=== PATIENT | male | born 1955 | race Caucasian/White ===

== ENCOUNTER 2021-09-16 08:07 | Emergency (ER) | payer OTHER ==
[~2021-09-16] VITALS: Ht 172.7 cm; Wt 82.1 kg
[2021-09-16 08:41] VITALS: BP 149/99
--- NOTE | 2021-09-16 08:44 | NUR ---
PT AMBULATED TO ER BED 8 WITH A STEADY GAIT.
--- NOTE | 2021-09-16 08:52 | NUR ---
66 Y/O MALE C/O RECTAL PAIN S/P HEMORRHOID REMOVAL 09/11/21. PT STATES SCANT KRISTIN RED BLOOD. DENIES FEVER/CHILLS. DENIES N/V. PMH: GALUCOMA, PHIL'S DISEASE, HTN, KIDNEY CA, KIDNEY REMOVAL, MS ALLERGIES: PCN
[2021-09-16] MEDS ORDERED: LACT-103 PO (09:19)
[2021-09-16 10:35] VITALS: BP 149/99
--- NOTE | 2021-09-16 10:35 | NUR ---
Patient discharged with information for constipation and proctalgia fugax v/s stable. Written and verbal after care instructions given and explained. Patient alert, oriented and verbalized understanding of instructions. Ambulatory with steady gait. All questions addressed prior to discharge. ID band removed. Patient advised to follow up with PMD. Rx of lactulose given. Patient educated on indication of medication including possible reaction and side effects. Opportunity to ask questions provided and answered.
--- NOTE | 2021-09-16 10:40 | NUR ---
The patient's care was reviewed and supervised by Juliana Dewey RN.
== END 2021-09-16 10:35 | disposition home or self-care (01) ==
LOC: MED 08:07
DX: G89.18 Other acute postprocedural pain (principal); K62.5 Hemorrhage of anus and rectum; Z79.899 Other long term (current) drug therapy; Z88.0 Allergy status to penicillin
CPT/HCPCS: 99283

== ENCOUNTER 2021-10-02 19:56 | Emergency (ER) | payer OTHER ==
[~2021-10-02] VITALS: Ht 172.7 cm; Wt 80.3 kg
[2021-10-02 19:56] VITALS: BP 123/89
[~2021-10-02 19:56] MED LIST: LACT-103 PO
--- NOTE | 2021-10-02 20:14 | NUR ---
PT HERMINIA VIA GURNEY TO BED 12.
--- NOTE | 2021-10-02 20:32 | NUR ---
66 YO/M BIBA FROM HOME W PRIMARY C/O RECTAL PAIN 10/10 WORSENING WHEN LAYING, STANDING, SITTING S/P HEMMORHOID SURGERY IN 09/03/21, + N/V WHEN ATTEMPTING TO HAVE A BOWEL MOVEMENT, +CONSTIPATION, CHILLS, HEADACHE, WEAKNESS. PT ALSO C/O SOB AND DIZZYNESS X1 WEEKS BUT WORSENING W COUGHING UP BLOOD PLHEGM LIKE. PT 86% ON RA, PLACED ON 4L NC W O2 SAT 93%. PT DENIES ANY CHEST PAIN, FEVERS, BLOOD IN STOOL. PT ALSO C/O R TESTICULAR SWELLING XAPPROX 1 WEEK W BURNING URINATION AND FREQUENCY, DENIES BLOOD IN URINE. DENIES INJURY TO GROIN AREA. R TESTICLE NOTED SWOLLEN. PT AOX4, GCS 15. ERMD MADE AWARE OF PT STATUS. RT CALLED FOR PT EVAL. PT LAYING IN BED W HOB ELEVATED, BED LOCKED IN LOWEST POSITION W X2 RAILS UP FOR SAFETY. PT CONNECTED TO MONITOR, BREATHING EVEN AND UNLABORED. WILL CONTINUE TO MONITOR. PMH:HTN, ABDOMINAL CANCER (W CURRENTLY RECEIVING IMMUNOTHERAPY) HIATAL HERNIA, GLAUCOMA, HIGH CHOL, MS, ADDISONS DZ, HEMORRHOID SURGERY 09/03/21 ALLERGIES: PENICILLINS
[2021-10-02] MEDS ORDERED: ALBUTEROL 0.083% 2.5 MG/3 ML NEBU INH ONE (21:01)
--- NOTE | 2021-10-02 21:22 | NUR ---
FLAKITA SWAB COLLECTED FROM PT NARES AND HANDED TO DIAMOND FROM LAB.
--- NOTE | 2021-10-02 21:40 | NUR ---
PT C/O OF ONGOING NAUSEA. ERMD MADE AWARE.
[2021-10-02 21:53] LABS: BASOPHILS % (AUTO) 0.7 % (0.0-2.0); EOSINOPHILS # (AUTO) 0.2 K/uL (0-0.4); EOSINOPHILS % (AUTO) 3.3 % (0.0-4.0); HEMATOCRIT 41.5 % (36-52); HEMOGLOBIN 13.9 g/dL (12.0-18.0); LYMPHOCYTES # (AUTO) 0.8 K/uL (2.0-11.5); LYMPHOCYTES % (AUTO) 15.4 % (20.5-51.1); MEAN CORPUSCULAR HEMOGLOBIN 31 pg (27-31); MEAN CORPUSCULAR HGB CONC 33 g/dL (33-37); MEAN CORPUSCULAR VOLUME 93.7 fL (80-94); MONOCYTES # (AUTO) 0.5 K/uL (0.8-1.0); MONOCYTES % (AUTO) 9.3 % (1.7-9.3); NEUTROPHILS # (AUTO) 3.7 K/uL (1.8-7.7); NEUTROPHILS % (AUTO) 71.3 % (42.2-75.2); PLATELET COUNT (AUTO) 396 K/uL (140-450); RED BLOOD CELL COUNT(AUTO) 4.43 MIL/uL (4.20-6.10); RED CELL DISTRIBUTION WIDTH 15.5 % (11.6-13.7); WHITE BLOOD COUNT (AUTO) 5.2 K/uL (4.8-10.8)
[2021-10-02] MEDS ORDERED: ONDANSETRON 4 MG/2 ML VIAL IVP ONE (21:55)
[2021-10-02] MEDS ORDERED: LEVOFLOXACIN 500 MG/D5W PREMIX 100 ML IV ONE (21:55)
[2021-10-02 22:07] LABS: ALBUMIN 2.6 g/dL (3.4-5.0); ANION GAP 10.1 (8-16); CARBON DIOXIDE 30.8 mmol/L (21-32); CREATININE 1.4 mg/dL (0.6-1.3); POTASSIUM 4.9 mmol/L (3.5-5.1); TOTAL BILIRUBIN 0.2 mg/dL (0.0-1.0)
--- NOTE | 2021-10-02 23:01 | NUR ---
PT C/O ONGOING HEADACHE AND RECTAL PAIN, REQUESTING PAIN MEDICATIONS. BETY ARNDT MADE AWARE. AWAITING ORDERS.
[2021-10-02] MEDS ORDERED: ACETAMINOPHEN EXTRA STRENGTH 500 MG TAB PO ONE (23:05)
[2021-10-02] MEDS ORDERED: HYDROcodone/APAP 5/325 MG 1 TAB TAB PO ONE (23:20)
--- NOTE | 2021-10-02 23:25 | NUR ---
PT IN BED LOCKED IN LOWEST POSITION W X2 SIDERAILS UP FOR PT SAFETY. VSS ON MONITOR ON 3 L NC 97 O2 SAT. RECENTLY MEDICATED FOR PAIN. BREATHING EVEN AND UNLABORED. NAD NOTED, WILL CONTINUE TO MONITOR.
--- NOTE | 2021-10-03 00:06 | NUR ---
PT C/O NAUSEA AND DIZZINESS. ERMD MADE AWARE.
[2021-10-03] MEDS ORDERED: ONDANSETRON 4 MG/2 ML VIAL IVP ONE (00:10)
[2021-10-03] MEDS ORDERED: IMO2 PO (00:25)
[2021-10-03] MEDS ORDERED: TIM.5OS OP (00:25)
[2021-10-03] MEDS ORDERED: DULO60EC1 PO (00:25)
[2021-10-03] MEDS ORDERED: TRAZ-343 PO (00:25)
[2021-10-03] MEDS ORDERED: SIMV20TA1 PO (00:25)
[2021-10-03] MEDS ORDERED: XALOS OP (00:25)
[2021-10-03] MEDS ORDERED: HYDR-3926 PO (00:25)
[2021-10-03] MEDS ORDERED: ASPI-1856 PO (00:25)
[2021-10-03] MEDS ORDERED: LISI-486 PO (00:25)
[2021-10-03] MEDS ORDERED: ONDA8TAB13 PO (00:25)
[2021-10-03] MEDS ORDERED: CABO40TA PO (00:25)
[2021-10-03] MEDS ORDERED: SYN.05 PO (00:25)
[2021-10-03] MEDS ORDERED: PANT40EC PO (00:25)
[2021-10-03] MEDS ORDERED: ALPOS OP (00:25)
[2021-10-03] MEDS ORDERED: [UNRECOGNIZED DRUG - CODE] IV (00:25)
[2021-10-03] MEDS ORDERED: BENZ200C4 PO (00:25)
--- NOTE | 2021-10-03 00:26 | NUR ---
SPOKE W PT JUSTO TO PROVIDE UPDATE ON PT STATUS. PER PT OK TO PROVIDE W UPDATES AND HEALTH STATUS INFO.
--- NOTE | 2021-10-03 01:01 | NUR ---
PT PROVIDED W APPLE JUICE. PER ERMD PT OK TO EAT AND DRINK. PT REPORTS MILD NAUSEA AND PAIN IMPROVEMENT PAIN AND NAUSEA AGGRAVATED W MOVEMENT BUT OTHERWISE FEELING OK, SLIGHT SOB BUT IMPROVED FROM INITIAL. VSS.
--- NOTE | 2021-10-03 02:11 | NUR ---
Pt report given to JOCELYN MEHTA. Transfer of care at this time.
[2021-10-03] MEDS ORDERED: MORPHINE SULFATE 4 MG/ML SYR IVP ONE (02:20)
--- NOTE | 2021-10-03 02:34 | NUR ---
PT C/O OF RECTAL PAIN. PT MEDICATED FOR PAIN. NO OTHER COMPLAINTS AT THIS TIME.
--- NOTE | 2021-10-03 02:58 | NUR ---
[facility] AT BEDSIDE FOR PT TRANSFER.
--- NOTE | 2021-10-03 03:00 | NUR ---
PT REPORTS RECTAL PAIN IMPROVEMENT. DENIES ONGOING HEADACHE OR NAUSEA. MILD DIZZYNESS. VSS.
[2021-10-03 03:02] VITALS: BP 108/80
--- NOTE | 2021-10-03 03:02 | NUR ---
Patient to be transferred to [facility]. Is being transferred due to INSURANCE REQUEST. Receiving facility has accepting physician and available space. ER physician has signed transfer form. Patient or responsible libertarian has agreed to transfer and signed form. Patient belongings inventoried and will be sent with patient. Copy of nursing notes, lab reports, EKG, Physicians Orders and X-rays to be sent with patient. Report called to JOCELYN MEHTA at receiving facility. [facility] ambulance service transferring pt at this time.
== END 2021-10-03 03:02 | disposition short-term general hospital (02) ==
LOC: MED 19:56
DX: R09.02 Hypoxemia (principal); Z20.822 Contact with and (suspected) exposure to COVID-19; J18.9 Pneumonia, unspecified organism; Z11.52 Encounter for screening for COVID-19
CPT/HCPCS: 36415; 71045; 76870; 80053; 83880; 84484; 85025; 87040; 87426; 93005; 96365; 96375; 96376; 99285; J1956; J2270; J2405; J7613; Q0092; 94640

== ENCOUNTER 2022-03-26 15:50 | Emergency (ER) | payer OTHER ==
[~2022-03-26] VITALS: Ht 172.7 cm; Wt 72.6 kg
[2022-03-26 15:50] VITALS: BP 105/76
[~2022-03-26 15:50] MED LIST changes: +ALPOS OP; +ASPI-1856 PO; +BENZ200C4 PO; +CABO40TA PO; +DULO60EC1 PO; +HYDR-3926 PO; +IMO2 PO; +LISI-486 PO; +ONDA8TAB13 PO; +PANT40EC PO; +SIMV-372 PO; +SYN.05 PO; +TIM.5OS OP; +TRAZ-343 PO; +XALOS OP; +[UNRECOGNIZED DRUG - CODE] IV
[2022-03-26] MEDS ORDERED: ONDANSETRON 4 MG/2 ML VIAL IVP ONE (16:45)
--- NOTE | 2022-03-26 16:57 | NUR ---
66YO MALE PT BIBA FROM HOME C/O N/V X1.5 WEEK. STATES VOMIT X3, DENIES BLOOD .STATES 5/10 LOWER ABDOMEN PAIN. ABDOMEN PRESENTS DISTENED -DUE TO HERNIA , NON TENDER TO TOUCH, ACTIVE X4. PT ON 2L VIA NC DUE TO PREVIOUS PNEUMONIA. RESPIRATIONS EVEN AND UNLABORED. STATES MILD RELIEF AFTER TAKING PERCOCET. 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 PMH:UMBILICAL HERNIA, KIDNEY CANCER WITH METS TO ABDOMEN AND LYMPH NODES, LAST CHEMO TREATEMENT 02/07/22
[2022-03-26 17:08] LABS: BASOPHILS # (AUTO) 0.1 K/uL (0.00-0.22); BASOPHILS % (AUTO) 0.6 % (0.0-2.0); EOSINOPHILS # (AUTO) 0.1 K/uL (0-0.4); EOSINOPHILS % (AUTO) 0.8 % (0.0-4.0); HEMATOCRIT 32.9 % (36-52); HEMOGLOBIN 10.6 g/dL (12.0-18.0); LYMPHOCYTES # (AUTO) 0.9 K/uL (2.0-11.5); LYMPHOCYTES % (AUTO) 8.4 % (20.5-51.1); MEAN CORPUSCULAR HEMOGLOBIN 26 pg (27-31); MEAN CORPUSCULAR HGB CONC 32 g/dL (33-37); MEAN CORPUSCULAR VOLUME 80.4 fL (80-94); MONOCYTES # (AUTO) 1.1 K/uL (0.8-1.0); NEUTROPHILS # (AUTO) 8.6 K/uL (1.8-7.7); NEUTROPHILS % (AUTO) 80.2 % (42.2-75.2); PLATELET COUNT (AUTO) 593 K/uL (140-450); RED BLOOD CELL COUNT(AUTO) 4.09 MIL/uL (4.20-6.10); RED CELL DISTRIBUTION WIDTH 17.6 % (11.6-13.7); WHITE BLOOD COUNT (AUTO) 10.7 K/uL (4.8-10.8)
--- NOTE | 2022-03-26 17:14 | NUR ---
PT TAKEN TO CT VIA CYNDY
--- NOTE | 2022-03-26 17:21 | NUR ---
PT BROUGHT BACK FROM CT VIA [facility]
[2022-03-26 17:25] LABS: ALBUMIN 2.1 g/dL (3.4-5.0); ANION GAP 12.7 (8-16); CARBON DIOXIDE 32.5 mmol/L (21-32); CREATININE 1.1 mg/dL (0.6-1.3); POTASSIUM 4.2 mmol/L (3.5-5.1); TOTAL BILIRUBIN 0.3 mg/dL (0.0-1.0)
[2022-03-26] MEDS ORDERED: PROM12.512 PO (19:04)
--- NOTE | 2022-03-26 19:20 | NUR ---
REPORT GIVEN TO KEYSHAWN MENDEZ. ALL QUESTIONS ANSWERED . TRANSFER OF CARE AT THIS TIME
--- NOTE | 2022-03-26 20:00 | NUR ---
PATIENT CALLING FAMILY FOR RIDE HOME
[2022-03-26 20:18] VITALS: BP 115/80
--- NOTE | 2022-03-26 20:18 | NUR ---
Patient discharged with v/s stable. Written and verbal after care instructions given and explained. Patient alert, oriented and verbalized understanding of instructions. Ambulatory with steady gait. All questions addressed prior to discharge. ID band removed. Patient advised to follow up with PMD. Rx of PROMETHAZINE given. PATIENT PICKED UP BY NEIGHBOR WITH OXYGEN AVAILABLE IN VEHICLE.
--- NOTE | 2022-03-26 20:24 | NUR ---
The patient's care was reviewed and supervised by Danica Manjarrez RN.
== END 2022-03-26 20:18 | disposition home or self-care (01) ==
LOC: MED 15:50
DX: R11.2 Nausea with vomiting, unspecified (principal); I10 Essential (primary) hypertension; Z98.890 Other specified postprocedural states; Z79.899 Other long term (current) drug therapy; Z85.528 Personal history of other malignant neoplasm of kidney; Z88.0 Allergy status to penicillin
CPT/HCPCS: 36415; 74176; 80053; 83690; 85025; 96374; 99285; J2405